=== PATIENT | male | born 1990 | race Two or more races ===

== ENCOUNTER 2022-09-01 09:41 | Emergency (ER) | payer BC, OTHER ==
[~2022-09-01] VITALS: Ht 165.1 cm; Wt 138.0 kg
[2022-09-01] MEDS ORDERED: HYDROcodone-ACET 10/325MG TAB PO ONE (12:00)
[2022-09-01] MEDS ORDERED: TRAM-297 PO (13:42)
[2022-09-01 14:59] VITALS: BP 118/69
== END 2022-09-01 14:59 | disposition home or self-care (01) ==
LOC: ER 09:41
DX: M54.59 Other low back pain (principal); M79.10 Myalgia, unspecified site
CPT/HCPCS: 72131

== ENCOUNTER 2025-07-31 18:04 | Emergency (ER) | payer BC ==
[~2025-07-31] VITALS: Ht 165.1 cm; Wt 63.3 kg
[~2025-07-31 18:04] MED LIST: TRAM-297 PO
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
[2025-07-31 19:48] VITALS: BP 119/55; PULSE 79; RESP 18; TEMP 98.2; O2SAT 96
[2025-07-31] MEDS ORDERED: TIZA-142 PO (19:56)
[2025-07-31] MEDS ORDERED: METH4PAK PO (19:56)
== END 2025-07-31 20:03 | disposition home or self-care (01) ==
LOC: ER 18:04
DX: S13.4XXA Sprain of ligaments of cervical spine, initial encounter (principal); G44.309 Post-traumatic headache, unspecified, not intractable; F10.90 Alcohol use, unspecified, uncomplicated; Z79.899 Other long term (current) drug therapy; V43.52XA Car driver injured in collision with other type car in traffic accident, initial encounter; Y93.89 Activity, other specified; Y92.488 Other paved roadways as the place of occurrence of the external cause; Y99.8 Other external cause status
CPT/HCPCS: 72040; 72100